=== PATIENT | female | born 1980 | race Caucasian/White ===

== ENCOUNTER 2018-08-12 13:18 | Emergency (ER) | payer OTHER ==
[~2018-08-12] VITALS: Ht 157.5 cm; Wt 80.3 kg
[2018-08-12] MEDS ORDERED: METFORMIN HCL500 MG PO (13:37)
[2018-08-12 13:55] LABS: ABSOLUTE BASOPHILS 0.1 thou/uL (0.0-0.2); ABSOLUTE EOSINOPHILS 0.1 thou/uL (0.0-0.7); ABSOLUTE MONOCYTES 0.8 thou/uL (0.0-1.2); ABSOLUTE NEUTROPHILS 5.7 thou/uL (1.6-8.1); BASOPHILS 0.6 %; EOSINOPHILS 1.2 %; HEMATOCRIT 41.9 % (37.0-47.0); HEMOGLOBIN 13.9 gm/dL (12.0-15.0); LYMPHOCYTES 22.8 %; MCH 28.9 pg (26.0-34.0); MCHC 33.2 g/dL (28.0-37.0); MONOCYTES 9.6 %; MPV 7.8 fl. (7.2-11.1); NUCLEATED RBCS 0 /100WBC; PLATELET COUNT* 247 thou/uL (150-400); POLYS 65.8 %; RBC 4.82 mil/uL (4.20-5.00); RDW-CV 15.9 % (10.5-14.5); WBC 8.6 thou/uL (4.0-11.0)
[2018-08-12 14:09] LABS: CALCIUM 8.3 mg/dL (8.5-10.1); CREATININE 0.8 mg/dL (0.6-1.3)
[2018-08-12 14:14] LABS: ALBUMIN 2.8 g/dL (3.4-5.0); TOTAL BILIRUBIN 0.3 mg/dL (<0.1-1.0); TOTAL PROTEIN 7.8 g/dL (6.4-8.2)
[2018-08-12] MEDS ORDERED: CIPRO500 MG PO (15:42)
[2018-08-12] MEDS ORDERED: FLAGYL500 MG PO (15:42)
[2018-08-12 15:52] VITALS: BP 126/81
== END 2018-08-12 15:52 | disposition home or self-care (01) ==
LOC: M.ERS 13:18
PROVIDERS: Physician Assistant
DX: K52.9 Noninfective gastroenteritis and colitis, unspecified (principal)

== ENCOUNTER 2018-12-12 11:40 | Emergency (ER) | payer OTHER ==
[~2018-12-12] VITALS: Ht 152.4 cm; Wt 80.7 kg
[~2018-12-12 11:40] MED LIST: CIPRO500 MG PO; FLAGYL500 MG PO; METFORMIN HCL500 MG PO
[2018-12-12] MEDS ORDERED: ADVIL200 M3 PO (12:44)
[2018-12-12 13:00] VITALS: BP 95/56
== END 2018-12-12 13:01 | disposition home or self-care (01) ==
LOC: M.ERS 11:40
DX: S46.911A Strain of unspecified muscle, fascia and tendon at shoulder and upper arm level, right arm, initial encounter (principal); X58.XXXA Exposure to other specified factors, initial encounter; Y93.89 Activity, other specified; Y92.89 Other specified places as the place of occurrence of the external cause; Y99.8 Other external cause status; E11.9 Type 2 diabetes mellitus without complications

== ENCOUNTER 2019-02-12 20:59 | Emergency (ER) | payer OTHER ==
[~2019-02-12] VITALS: Ht 157.5 cm; Wt 81.7 kg
[~2019-02-12 20:59] MED LIST changes: +ADVIL200 M3 PO
[2019-02-12] MEDS ORDERED: BUTALB-APAP-CA1 EACH PO (22:37)
[2019-02-12 22:54] VITALS: BP 105/64
== END 2019-02-12 22:54 | disposition home or self-care (01) ==
LOC: M.ERS 20:59
DX: G44.209 Tension-type headache, unspecified, not intractable (principal); E11.9 Type 2 diabetes mellitus without complications

== ENCOUNTER 2019-03-30 15:34 | Emergency (ER) | payer OTHER ==
[~2019-03-30] VITALS: Ht 157.5 cm; Wt 83.0 kg
[~2019-03-30 15:34] MED LIST changes: +BUTALB-APAP-CA1 EACH PO
[2019-03-30 16:34] LABS: ABSOLUTE BASOPHILS 0.1 thou/uL (0.0-0.2); ABSOLUTE EOSINOPHILS 0.3 thou/uL (0.0-0.7); ABSOLUTE LYMPHOCYTES 2.5 thou/uL (0.8-5.3); ABSOLUTE MONOCYTES 0.5 thou/uL (0.0-1.2); ABSOLUTE NEUTROPHILS 3.6 thou/uL (1.6-8.1); BASOPHILS 0.9 %; EOSINOPHILS 4.5 %; HEMATOCRIT 38.2 % (37.0-47.0); HEMOGLOBIN 12.8 gm/dL (12.0-15.0); LYMPHOCYTES 35.9 %; MCH 28.6 pg (26.0-34.0); MCHC 33.4 g/dL (28.0-37.0); MCV 85.6 fL (80.0-100.0); MONOCYTES 7.4 %; MPV 8.1 fl. (7.2-11.1); NUCLEATED RBCS 0 /100WBC; PLATELET COUNT* 296 thou/uL (150-400); POLYS 51.3 %; RBC 4.46 mil/uL (4.20-5.00); RDW-CV 18.2 % (10.5-14.5)
[2019-03-30 16:42] LABS: CALCIUM 8.9 mg/dL (8.5-10.1); CREATININE 0.9 mg/dL (0.6-1.3); POTASSIUM 3.9 mmol/L (3.5-5.1)
[2019-03-30 16:47] LABS: TOTAL BILIRUBIN 0.4 mg/dL (<0.1-1.0); TOTAL PROTEIN 7.7 g/dL (6.4-8.2)
[2019-03-30] MEDS ORDERED: NABUMETONE 750750 M1 PO (17:45)
[2019-03-30 17:48] LABS: ESR (SEDRATE) 37 mm/hr (0-20)
[2019-03-30 18:03] VITALS: BP 108/58
== END 2019-03-30 18:04 | disposition home or self-care (01) ==
LOC: M.ERS 15:34
PROVIDERS: Nurse Practitioner Family
DX: R51 Headache (principal); H61.21 Impacted cerumen, right ear